=== PATIENT | female | born 2000 | race Caucasian/White ===

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

== ENCOUNTER 2018-02-05 22:08 | Emergency (ER) | payer OTHER ==
[~2018-02-05] VITALS: Ht 157.5 cm; Wt 65.0 kg
[~2018-02-05 22:08] MED LIST: ADVI200T PO; PROT1TAB2 PO; TYLE325T5 PO
[2018-02-05 22:09] VITALS: BP 116/66
[2018-02-05] MEDS ORDERED: NS 1,000 ML IV ONE (22:45)
[2018-02-05] MEDS ORDERED: PANTOPRAZOLE 40MG INJ (PROTONIX) (C9113) IV ONE (22:45)
[2018-02-05] MEDS ORDERED: ONDANSETRON 4MG/2ML VIAL (J2405) IV ONE (22:45)
== END 2018-02-05 23:41 | disposition left against medical advice (07) ==
LOC: M ED 22:08
DX: R10.30 Lower abdominal pain, unspecified (principal); R11.2 Nausea with vomiting, unspecified; F17.210 Nicotine dependence, cigarettes, uncomplicated

== ENCOUNTER 2018-08-17 19:51 | Emergency (ER) | payer OTHER ==
[~2018-08-17] VITALS: Ht 160 cm; Wt 69.1 kg
[2018-08-17] MEDS ORDERED: LUNE2TAB23 PO (20:03)
[2018-08-17 21:06] LABS: BASO % 0.4 % (0.0-1.0); EOS % 0.8 % (0.0-3.0); HEMATOCRIT 38.7 % (36.0-47.0); HEMOGLOBIN 13.5 g/dl (12.0-15.5); LYMPH # 2.5 10^3/uL (1.5-6.5); LYMPH % 46.7 % (24.0-44.0); MEAN CORPUSCULAR HEMOGLOBIN 32.9 pg (27.0-33.0); MEAN CORPUSCULAR HGB CONC 34.9 g/dl (32.0-36.5); MEAN CORPUSCULAR VOLUME 94.4 fl (80.0-96.0); MONO # 0.4 10^3/uL (0.0-0.8); NEUTROPHILS # 2.3 10^3/uL (1.8-7.7); NEUTROPHILS % 43.9 % (36.0-66.0); PLATELET COUNT, AUTOMATED 244 10^3/uL (150-450); WHITE BLOOD COUNT 5.3 10^3/uL (4.0-10.0)
[2018-08-17 21:38] LABS: ALBUMIN 4.1 GM/DL (3.2-5.2); ALT/SGPT 18 U/L (12-78); BILIRUBIN,DIRECT 0.1 MG/DL (0.0-0.2); BILIRUBIN,TOTAL 0.3 MG/DL (0.2-1.0); BLOOD UREA NITROGEN 10 MG/DL (7-18); CALCIUM LEVEL 8.7 MG/DL (8.5-10.1); CARBON DIOXIDE LEVEL 25 MEQ/L (21-32); CHLORIDE LEVEL 110 MEQ/L (98-107); CREATININE FOR GFR 0.74 MG/DL (0.55-1.30); GLUCOSE, FASTING 84 MG/DL (70-100); LIPASE 123 U/L (73-393); POTASSIUM SERUM 3.5 MEQ/L (3.5-5.1); SODIUM LEVEL 142 MEQ/L (136-145)
[2018-08-17] MEDS ORDERED: ONDANSETRON 4 MG ORAL DISINTEGRATING TAB (Q0162 PER 1MG) PO ONE (22:00)
[2018-08-17] MEDS ORDERED: IBUPROFEN 600 MG TAB PO ONE (22:00)
--- NOTE | 2018-08-17 23:43 | REPVR ---
EXAM: US Abdomen Limited, Right Upper Quadrant EXAM DATE/TIME: 08/17/2018 10:52 PM CLINICAL HISTORY: 17 years old, female; Abdominal pain; Generalized; Additional info: Ruq pain TECHNIQUE: Imaging protocol: Real-time ultrasound of the abdomen with image documentation. Examination was focused on the right upper quadrant. COMPARISON: RENAL US 11/02/2017 11:50 AM FINDINGS: Liver: Normal. No masses. Gallbladder: Gallbladder is contracted however the patient is not fasting. Common bile duct: Common bile duct measures 2 mm. Pancreas: Pancreas incompletely visualized. Visualized segments appear unremarkable. Right kidney: Right kidney measures 10.5 x 5 x 3.5 cm. IMPRESSION: 1. Gallbladder is contracted however the patient is not fasting. 2. No acute findings. Electronically signed by: Alexis Barrera On 08/17/2018 23:43:24 PM
--- NOTE | 2018-08-17 23:45 | REPVR ---
EXAM: US Pelvis, Transvaginal EXAM DATE/TIME: 08/17/2018 10:52 PM CLINICAL HISTORY: 17 years old, female; Pelvic pain; Additional info: RO ovarian cyst TECHNIQUE: Imaging protocol: Real-time transvaginal pelvic ultrasound with image documentation. Transvaginal imaging was used for better evaluation of the endometrium and adnexa. COMPARISON: RENAL US 11/02/2017 11:50 AM FINDINGS: Uterus/cervix: Uterus measures 6.1 x 3.5 x 3.4 cm. Endometrial echocomplex measures 7.3 mm. Right adnexa: Right ovary measures 3.6 x 2.3 x 2 cm. Resistive index 0.6. Left adnexa: Left ovary measures 2.3 x 1.7 x 2.4 cm. Resistive index 0.51. Free fluid: None. IMPRESSION: No acute findings. Electronically signed by: Alexis Barrera On 08/17/2018 23:44:43 PM
[2018-08-18 00:07] VITALS: BP 113/64
== END 2018-08-18 00:08 | disposition home or self-care (01) ==
LOC: M ED 19:51
DX: R10.84 Generalized abdominal pain (principal); R11.0 Nausea; R31.9 Hematuria, unspecified; K21.9 Gastro-esophageal reflux disease without esophagitis; E03.9 Hypothyroidism, unspecified; Z79.890 Hormone replacement therapy; Z79.3 Long term (current) use of hormonal contraceptives; Z77.098 Contact with and (suspected) exposure to other hazardous, chiefly nonmedicinal, chemicals
CPT/HCPCS: 36415; 76705; 76830; 76856; 80048; 80076; 81001; 83690; 84702; 85025; 93976; 99284; Q0162

== ENCOUNTER 2018-08-25 11:02 | Emergency (ER) | payer OTHER ==
[~2018-08-25] VITALS: Ht 160 cm; Wt 68.1 kg
[~2018-08-25 11:02] MED LIST changes: +LUNE2TAB23 PO
[2018-08-25] MEDS ORDERED: SYNT50TA (11:19)
[2018-08-25] MEDS ORDERED: DEPO150I (11:19)
[2018-08-25] MEDS ORDERED: ACETAMINOPHEN 500 MG TAB PO ONE (11:30)
[2018-08-25] MEDS ORDERED: IBUPROFEN 800 MG TAB PO ONE (11:45)
--- NOTE | 2018-08-25 12:11 | REP ---
CT study of the cervical spine without contrast: History: Trauma. Technique: Helical scanning is acquired and overlapping 2 mm high resolution axial images were generated and reviewed at bone and soft tissue window settings. Coronal and sagittal multiplanar re-formations images are generated. CT findings: There is no evidence of cervical spine element fracture. No skull base fracture is seen. Cervical vertebral body heights are preserved. Alignment is normal. Facet joints are normally aligned bilaterally at each cervical level on multiplanar re-formations images. There is no evidence of intraspinal or paraspinal hematoma. No extra vertebral abnormality is seen. Impression: Negative CT study of the cervical spine without contrast. No fracture seen. Electronically Signed by Shukri Ramirez MD 08/25/2018 11:47 A
--- NOTE | 2018-08-25 12:28 | REP ---
Thoracic spine three views: Vertebral body heights, interspacing alignment are normal. There is no compression deformity or listhesis. The pedicles are unremarkable. Impression: Negative thoracic spine. Electronically Signed by Tunde Amado MD 08/25/2018 12:20 P
[2018-08-25 13:57] VITALS: BP 141/87
== END 2018-08-25 13:56 | disposition home or self-care (01) ==
LOC: EDBD 11:02 → M ED 11:02
DX: S16.1XXA Strain of muscle, fascia and tendon at neck level, initial encounter (principal); S29.012A Strain of muscle and tendon of back wall of thorax, initial encounter; V43.62XA Car passenger injured in collision with other type car in traffic accident, initial encounter; Y92.9 Unspecified place or not applicable; Y93.9 Activity, unspecified; Y99.9 Unspecified external cause status

== ENCOUNTER 2018-09-26 09:28 | Emergency (ER) | payer OTHER ==
[~2018-09-26] VITALS: Ht 160 cm; Wt 67.2 kg
[~2018-09-26 09:28] MED LIST changes: +DEPO150I; +SYNT50TA PO
[2018-09-26] MEDS ORDERED: KETOROLAC 60 MG/2 ML VIAL (J1885) IM ONE (10:30)
[2018-09-26] MEDS ORDERED: ZANA4CAP PO (12:11)
[2018-09-26] MEDS ORDERED: MOBI4TAB PO (12:11)
[2018-09-26 12:21] VITALS: BP 144/69
--- NOTE | 2018-09-26 14:44 | REP ---
AP PELVIS: 09/26/2018. Clinical history: Trauma. Findings: Pelvic ring intact. Pubic rami, symphysis pubis, acetabuli, hips and iliac wings unremarkable. Sacral ala, foramina and SI joints unremarkable. Lower lumbar vertebral bodies intact. No avulsion. Impression: 1. Negative AP pelvis. Electronically Signed by Sherman Williamson MD 09/26/2018 08:38 P
--- NOTE | 2018-09-27 08:07 | REP ---
RIGHT ANKLE COMPLETE: 09/26/2018. Clinical history: Trauma. Findings: Four views provided. There is minor soft tissue swelling anterolateral aspect of the ankle, but no visible or displaced fracture of the distal tibia or fibula. Mortise joint symmetric and preserved with no talar dome osteochondral defect. Subtalar joints intact. No heel spurs. Talonavicular and calcaneocuboid joints unremarkable. Visualized tarsal bones intact. Impression: 1. Minor soft tissue swelling without fracture, avulsion, disruption of the mortise joint or other acute finding. Electronically Signed by Sherman Williamson MD 09/27/2018 08:08 A
--- NOTE | 2018-09-27 08:10 | REP ---
RIGHT FEMUR: 09/26/2018. Clinical history: Trauma. Findings: Four views to encompass the entire right femur provided. Hip joint space preserved. There is no fracture of the hip, femoral neck, trochanters or femoral shaft and femoral condyles and patella unremarkable. No abnormal soft-tissue calcification. Impression: 1. Negative right femur series for fracture or acute bony finding. Electronically Signed by Sherman Williamson MD 09/27/2018 08:24 A
== END 2018-09-26 12:27 | disposition home or self-care (01) ==
LOC: M ED 09:28
DX: M25.571 Pain in right ankle and joints of right foot (principal); M25.551 Pain in right hip; M79.651 Pain in right thigh; Z79.899 Other long term (current) drug therapy; Z79.890 Hormone replacement therapy; Z79.3 Long term (current) use of hormonal contraceptives
CPT/HCPCS: 72190; 73552; 73610; 96372; 99284; J1885

== ENCOUNTER 2019-03-24 20:15 | Emergency (ER) | payer OTHER ==
[~2019-03-24] VITALS: Ht 160 cm; Wt 72.4 kg
[2019-03-24 20:15] VITALS: BP 139/68
[~2019-03-24 20:15] MED LIST changes: +MOBI4TAB PO; +ZANA4CAP PO
[2019-03-24] MEDS ORDERED: BUPR150T3 PO (20:22)
[2019-03-24] MEDS ORDERED: MICO2CRE23 TOP (20:22)
[2019-03-25 00:59] LABS: CHLAMYDIA DNA AMPLIFICATION NEGATIVE (NEGATIVE); GC DNA AMPLIFICATION NEGATIVE (NEGATIVE)
== END 2019-03-25 01:14 | disposition home or self-care (01) ==
LOC: M ED 20:15
DX: N89.8 Other specified noninflammatory disorders of vagina (principal); K21.9 Gastro-esophageal reflux disease without esophagitis; E03.9 Hypothyroidism, unspecified; F17.210 Nicotine dependence, cigarettes, uncomplicated; Z79.899 Other long term (current) drug therapy

== ENCOUNTER 2019-09-21 06:00 | Day surgery (SDC) | payer OTHER ==
[~2019-09-21 06:00] MED LIST changes: +BUPR150T3 PO; +MICO2CRE23 TOP
[2019-09-21] MEDS ORDERED: ceFAZolin 1GM VIAL (J0690 PER 500MG) ONE (06:34)
[2019-09-21] MEDS ORDERED: LIDOCAINE 1% MDV 20ML VIAL ONE (07:17)
[2019-09-21] MEDS ORDERED: methylPREDNISolone 500 MG VIAL (J2930) ONE (07:17)
[2019-09-21] MEDS ORDERED: BOTOX THERAPEUTIC 100 UNIT VIAL (J0585 PER 1 UNIT) ONE (07:17)
[2019-09-21] MEDS ORDERED: MIDAZOLAM INJ 2MG/2ML VIAL (J2250 PER 1MG) ONE (07:19)
[2019-09-21] MEDS ORDERED: propofoL 200 MG/20 ML VIAL ONE (07:19)
[2019-09-21] MEDS ORDERED: LIDOCAINE 2% 100MG/5ML SDV (FOR ANES.) ONE (07:19)
[2019-09-21] MEDS ORDERED: fentaNYL 100 MCG/2 ML INJECTION (J3010) ONE (07:19)
[2019-09-21] MEDS ORDERED: ONDANSETRON 4MG/2ML VIAL ONE (07:19)
[2019-09-21] MEDS ORDERED: KETOROLAC 60MG 2ML VIAL ONE (08:06)
[2019-09-21] MEDS ORDERED: dexameTHASONE 4 MG/ML 1ML VIAL (J1100 PER 1MG) ONE (08:06)
[2019-09-21] MEDS ORDERED: PERCOCET 5MG/325MG TAB ONE (08:31)
[2019-11-13 01:01] LABS: HEMATOCRIT 40.3 % (36.0-47.0); HEMOGLOBIN 13.7 g/dl (12.0-15.5); MEAN CORPUSCULAR HEMOGLOBIN 32.5 pg (27.0-33.0); MEAN CORPUSCULAR VOLUME 95.7 fl (80.0-96.0); PLATELET COUNT, AUTOMATED 233 10^3/uL (150-450); RED BLOOD COUNT 4.21 10^6/uL (4.00-5.40); WHITE BLOOD COUNT 6.3 10^3/uL (4.0-10.0)
--- NOTE | 2019-11-21 11:53 | RO ---
DATE OF OPERATION: 09/21/2019 PREOPERATIVE DIAGNOSES: * Chronic pelvic pain. * Menometrorrhagia. * Dysmenorrhea. * Myofascial pain syndrome. POSTOPERATIVE DIAGNOSES: * Chronic pelvic pain. * Menometrorrhagia. * Dysmenorrhea. * Myofascial pain syndrome. SURGEON: Ramya Amado MD. OVEN LABORER: None. ANESTHESIA: Monitored anesthesia care (MAC). IV FLUIDS: 300 mL lactated ringers. ESTIMATED BLOOD LOSS: Less than 5 mL. URINE OUTPUT: None. COMPLICATIONS: None. SPECIMENS: None. PROCEDURES: * Ella intrauterine device insertion. * Exam under anesthesia. * Trigger point injection to the levator ani with: 1. 20 mL of 1% Xylocaine and Solu-Medrol 250 mg. 2. Botox 100 units. FINDINGS: Retroverted normal uterus without adnexal mass and nulliparous cervix. No evidence of pelvic organ prolapse. DESCRIPTION OF PROCEDURE: Patient was brought back to the operating room where MAC anesthesia was induced and the patient was then placed in the dorsolithotomy position. Exam under anesthesia was performed with the above findings. A bivalve speculum was then placed within the vagina and the cervix was then identified. The anterior lip of the cervix was then grasped with a single-tooth tenaculum and the cervix was able to be dilated slightly with a uterine sound, which the uterus and cervix sounded to a total of 7 cm. The Ella IUD insertion device was then put together appropriately. This was smoothly inserted without difficulty to the fundus of the uterus and then withdrawn approximately 1 cm. At that time, the uterus was the expelled using the device while slowly shifting upward toward the fundus of the uterus. The IUD insertion device was then removed without difficulty. Strings were cut at approximately 3 cm from the external os of the cervix. First syringe, which contained Xylocaine and Solu-Medrol attached to a spinal needle was then used to do a total of two injections, totaling 10 mL, on patients right levator ani both on the anterior and posterior side. I went in to a depth of approximately 1.5 cm and initially withdraw, and then injected. This was repeated on the patients left side. The syringe was then removed. Botox 100 units mixed in 10 mL was then also injected into the patients right levator ani using the same technique of the Solu-Medrol and Xylocaine. No evidence of systemic response was noted. Good hemostasis was obtained of both the cervix and injection sites with a sponge stick upon removal of all instruments. Needle, lap, and instrument counts were correct x2. Patient was awoken and brought back to the recovery room in stable condition. AILEEN
== END 2019-09-21 09:05 | disposition home or self-care (01) ==
LOC: M SDC 06:00
PROVIDERS: ATTEND Obstetrics & Gynecology
DX: R10.2 Pelvic and perineal pain (principal); N92.1 Excessive and frequent menstruation with irregular cycle; N94.6 Dysmenorrhea, unspecified; M79.7 Fibromyalgia; E03.9 Hypothyroidism, unspecified; Z79.899 Other long term (current) drug therapy
CPT/HCPCS: 20552; 36415; 49320; 58300; 58558; 84703; 85027; J0585; J0690; J1100; J1885; J2250; J2405; J2930; J3010; J7301